=== PATIENT | female | born 1950 | race Caucasian/White ===

== ENCOUNTER 2024-08-20 03:42 | Inpatient (IN) | payer MEDICARE, OTHER ==
[~2024-08-20] VITALS: Ht 165.1 cm; Wt 81.8 kg
[2024-08-20 04:42] LABS: BASOPHILS % (AUTO) 0.3 % (0-1); EOSINOPHILS % (AUTO) 0.6 % (0-6); HEMATOCRIT 40.6 % (35.0-45.0); HEMOGLOBIN 13.6 g/dl (12.0-16.0); MEAN CORPUSCULAR HEMOGLOBIN 32.7 PG (27.0-31.0); MEAN CORPUSCULAR HGB CONC 33.5 g/dL (33.0-36.5); MEAN CORPUSCULAR VOLUME 97.7 FL (78-98); MEAN PLATELET VOLUME 7.9 FL (7.4-10.4); MONOCYTES # (AUTO) 0.6 X10'3 (0-0.9); MONOCYTES % (AUTO) 7.9 % (2-12); NEUTROPHILS # (AUTO) 6.2 X10'3 (1.8-7.7); NEUTROPHILS % (AUTO) 78.2 % (42-75); PLATELET COUNT 301 X10'3 (140-440); RED BLOOD COUNT 4.16 X10'6 (4.20-5.60); RED CELL DISTRIBUTION WIDTH 13.8 % (11.5-14.5)
[2024-08-20 04:55] LABS: ALANINE AMINOTRANSFERASE 309 U/L (12-78); ALBUMIN 3.5 G/DL (3.4-5.0); ALBUMIN/GLOBULIN RATIO 0.9 (1.1-1.5); ALKALINE PHOSPHATASE 146 IU/L (46-116); ANION GAP 7 (8-16); ASPARTATE AMINO TRANSFERASE 703 U/L (10-37); BILIRUBIN,TOTAL 1.4 MG/DL (0.1-1.0); BLOOD UREA NITROGEN 14 MG/DL (7-18); BUN/CREATININE RATIO 16.1 (10.0-20.0); CALCIUM 9.5 MG/DL (8.5-10.1); CHLORIDE 101 MMOL/L (99-107); CREATININE 0.87 MG/DL (0.40-0.90); GLUCOSE 128 MG/DL (70-104); SODIUM 139 MMOL/L (135-145); TOTAL CARBON DIOXIDE 31.1 MMOL/L (24-32); TOTAL PROTEIN 7.3 G/DL (6.4-8.2); eCRCL 51 ML/MIN; eGFR 64 ML/MIN
[2024-08-20 05:03] LABS: LIPASE 33 U/L (16-77); PRO BRAIN NATRIURETIC PEPTIDE 315 PG/ML (0-125)
[2024-08-20] MEDS ORDERED: iohexol 300mg/ml 100ml inj. ONE (05:06)
[2024-08-20] MEDS: ondansetron/PF 4mg/2ml inj IV ONE (05:22)
[2024-08-20] MEDS: morphine 4 MG/ML inj SYRINge IV ONE (05:23)
[2024-08-20] MEDS: normal saline 1000ml 1,000 ML IV ONE (05:26)
[2024-08-20] MEDS: CefTRIAXone 2gm/D5W 50ml BAG 50 ML IV SCH (08:43)
[2024-08-20 09:01] LABS: BILIRUBIN,URINE NEGATIVE (Neg); CLARITY,URINE SLIGHTLY CLOUDY (Clear); COLOR,URINE YELLOW (Yellow); GLUCOSE, URINE NEGATIVE (Neg); KETONES,URINE NEGATIVE (Neg); LEUKOCYTE ESTERASE ,URINE NEGATIVE (Neg); NITRITES, URINE POSITIVE (Neg); OCCULT BLOOD,URINE NEGATIVE (Neg); PH,URINE 7.5 (4.8-8.0); PROTEIN,URINE NEGATIVE (Neg); UROBILINOGEN,URINE >=8.0 E.U/dL (0.2-1.0)
[2024-08-20 09:02] LABS: UA COLLECTION TYPE CLN CATCH MIDSTREAM
[2024-08-20 09:07] LABS: BACTERIA,URINE 4+ /HPF (Neg); MUCUS STRANDS NONE SEEN /LPF (Neg); RBC,URINE NONE SEEN /HPF (0-2); SQUAMOUS EPITHELIAL CELL,UR FEW /LPF (FEW); WBC CLUMPS,URINE FEW /HPF (NEGATIVE); WBC,URINE 0-4 /HPF (0-4)
[2024-08-20] MEDS ORDERED: magnesium Cl slow-release 64mg tablet PO PRN (09:40)
[2024-08-20] MEDS ORDERED: acetaminophen 325mg tablet PO PRN (09:40)
[2024-08-20] MEDS ORDERED: potassium Cl 40MEQ/1/2NS 520ml 520 ML IV PRN (09:40)
[2024-08-20] MEDS ORDERED: mag hydrox/Alum hydrox/simeth 30ml oral suspension PO PRN (09:40)
[2024-08-20] MEDS: PERFLUTREN PROTEIN-A MICROSPHR (Optison) 0.22 MG/ML 3ML VIAL IV ONE (09:40)
[2024-08-20] MEDS ORDERED: potassium Cl 20 mEq SR tablet PO PRN ×2 (09:40)
[2024-08-20] MEDS ORDERED: magnesium hydroxide 30ml (MOM) UD suspension PO PRN (09:40)
[2024-08-20] MEDS ORDERED: magnesium sulf-water 4G/100mL 100 ML IV PRN (09:40)
[2024-08-20] MEDS ORDERED: magnesium sulf-water 2g/50mL 50 ML IV PRN (09:40)
[2024-08-20] MEDS: normal saline 1000ml 1,000 ML IV SCH (09:43)
[2024-08-20] MEDS: metroNIDAZOLE-Flagyl 500mg/NS 100 ML IV SCH (11:08)
[2024-08-20 11:18] LABS: MAGNESIUM 2.1 MG/DL (1.5-2.4)
[2024-08-20] MEDS ORDERED: iohexol 350MG/ML 100ml bottle IV ONE (13:18)
[2024-08-20] MEDS ORDERED: FAMO40TA58 PO (18:35)
[2024-08-20] MEDS ORDERED: LEVO75TA7 PO (18:35)
[2024-08-20] MEDS ORDERED: HYDR-3965 PO (18:35)
[2024-08-20] MEDS ORDERED: PANT40TA54 PO (18:35)
[2024-08-20] MEDS ORDERED: DULO20CA18 (18:35)
[2024-08-20 18:57] LABS: THYROID STIMULATING HORMONE 2.41 ulU/ml (0.34-4.50)
[2024-08-20 19:30] VITALS: BP 124/58; PULSE 67; RESP 18; TEMP 97.7; O2SAT 95
[2024-08-20] MEDS: K and/or MAG REPLACEMENT MC SCH (19:54)
[2024-08-20] MEDS: docusate sod 100mg capsule PO SCH (19:55)
[2024-08-20 20:00] VITALS: RESP 18; O2SAT 95
[2024-08-20 22:00] VITALS: BP 136/58; PULSE 75; RESP 14; TEMP 98.1; O2SAT 96
[2024-08-21 05:49] LABS: EOSINOPHILS # (AUTO) 0.5 X10'3 (0-0.9); EOSINOPHILS % (AUTO) 10.1 % (0-6); HEMOGLOBIN 11.9 g/dl (12.0-16.0); LYMPHOCYTES # (AUTO) 1.1 X10'3 (1.1-4.8); MEAN CORPUSCULAR HEMOGLOBIN 33.1 PG (27.0-31.0); MEAN CORPUSCULAR HGB CONC 33.1 g/dL (33.0-36.5); MEAN CORPUSCULAR VOLUME 99.9 FL (78-98); MEAN PLATELET VOLUME 7.9 FL (7.4-10.4); MONOCYTES # (AUTO) 0.6 X10'3 (0-0.9); MONOCYTES % (AUTO) 11.6 % (2-12); NEUTROPHILS # (AUTO) 2.7 X10'3 (1.8-7.7); NEUTROPHILS % (AUTO) 54.3 % (42-75); PLATELET COUNT 246 X10'3 (140-440); RED BLOOD COUNT 3.61 X10'6 (4.20-5.60)
[2024-08-21 06:00] VITALS: BP 122/53; PULSE 76; RESP 14; TEMP 97.8; O2SAT 91
[2024-08-21 06:03] LABS: ALANINE AMINOTRANSFERASE 321 U/L (12-78); ALBUMIN 2.6 G/DL (3.4-5.0); ALBUMIN/GLOBULIN RATIO 0.8 (1.1-1.5); ALKALINE PHOSPHATASE 127 IU/L (46-116); ANION GAP 5 (8-16); ASPARTATE AMINO TRANSFERASE 274 U/L (10-37); BILIRUBIN,TOTAL 0.6 MG/DL (0.1-1.0); BLOOD UREA NITROGEN 10 MG/DL (7-18); CALCIUM 8.2 MG/DL (8.5-10.1); CHLORIDE 107 MMOL/L (99-107); CHOL/HDL RATIO 2.2 (0.00-4.99); CHOLESTEROL 164 MG/DL (0-200); CREATININE 0.77 MG/DL (0.40-0.90); GLUCOSE 84 MG/DL (70-104); HDL CHOLESTEROL 74 MG/DL (35-60); MAGNESIUM 1.8 MG/DL (1.5-2.4); POTASSIUM 3.9 MMOL/L (3.5-5.1); SODIUM 140 MMOL/L (135-145); TOTAL CARBON DIOXIDE 28.5 MMOL/L (24-32); TOTAL PROTEIN 5.7 G/DL (6.4-8.2); TRIGLYCERIDES 50 MG/DL (20-135); eCRCL 58 ML/MIN; eGFR 73 ML/MIN
[2024-08-21 06:18] LABS: LDL CHOLESTEROL 77 MG/DL (50-100)
[2024-08-21] MEDS: HYDROcodone/acetaminophen 5mg/325mg tablet PO PRN (07:46)
[2024-08-21 08:00] VITALS: RESP 16; O2SAT 95
[2024-08-21 10:00] VITALS: BP 132/56; PULSE 76; RESP 16; TEMP 98.6; O2SAT 95
[2024-08-21] MEDS: morphine 2 MG/ML inj. syringe IV PRN (10:29)
[2024-08-21] MEDS: sincalide inj 1.6 MCG in normal saline 100ml IV soln 100 ML IV ONE ×2 (10:50→11:00)
[2024-08-21 13:01] VITALS: RESP 16; O2SAT 95
[2024-08-21] MEDS: azithromycin/NS 500mg/250ml 250 ML IV SCH (16:18)
[2024-08-21] MEDS: ondansetron/PF 4mg/2ml inj IV PRN (16:42)
[2024-08-21 18:30] VITALS: BP 140/55; PULSE 79; RESP 15; TEMP 99.2; O2SAT 95
[2024-08-21] MEDS: lactobacillus rhamnosus 10,000 MMU CELLS/CAPSULE PO SCH (19:54)
[2024-08-21] MEDS: methylPREDNISolone sod succ/PF 40mg inj. IV SCH (19:54)
[2024-08-21 22:00] VITALS: BP 135/55; PULSE 75; RESP 16; TEMP 98.6; O2SAT 92
[2024-08-22] VITALS (18 sets, daily range): BP systolic 135–151; BP diastolic 50–77; PULSE 62–89; RESP 12–23; TEMP 98–98.5; O2SAT 91–100
[2024-08-22 06:50] LABS: BASOPHILS % (AUTO) 0.1 % (0-1); EOSINOPHILS % (AUTO) 0 % (0-6); HEMATOCRIT 37.3 % (35.0-45.0); HEMOGLOBIN 12.3 g/dl (12.0-16.0); LYMPHOCYTES # (AUTO) 0.6 X10'3 (1.1-4.8); LYMPHOCYTES % (AUTO) 7.5 % (21-51); MEAN CORPUSCULAR HEMOGLOBIN 32.6 PG (27.0-31.0); MEAN CORPUSCULAR HGB CONC 32.9 g/dL (33.0-36.5); MEAN CORPUSCULAR VOLUME 99.1 FL (78-98); MONOCYTES # (AUTO) 0.3 X10'3 (0-0.9); MONOCYTES % (AUTO) 3.3 % (2-12); NEUTROPHILS # (AUTO) 7.4 X10'3 (1.8-7.7); NEUTROPHILS % (AUTO) 89.1 % (42-75); PLATELET COUNT 270 X10'3 (140-440); RED BLOOD COUNT 3.77 X10'6 (4.20-5.60); RED CELL DISTRIBUTION WIDTH 14.2 % (11.5-14.5); WHITE BLOOD COUNT 8.3 X10'3 (4.5-11.0)
[2024-08-22 07:02] LABS: ALANINE AMINOTRANSFERASE 216 U/L (12-78); ALBUMIN 2.8 G/DL (3.4-5.0); ALBUMIN/GLOBULIN RATIO 0.8 (1.1-1.5); ALKALINE PHOSPHATASE 121 IU/L (46-116); ANION GAP 4 (8-16); ASPARTATE AMINO TRANSFERASE 102 U/L (10-37); BILIRUBIN,TOTAL 0.3 MG/DL (0.1-1.0); BLOOD UREA NITROGEN 8 MG/DL (7-18); BUN/CREATININE RATIO 10.8 (10.0-20.0); CALCIUM 8.6 MG/DL (8.5-10.1); CHLORIDE 104 MMOL/L (99-107); CREATININE 0.74 MG/DL (0.40-0.90); GLUCOSE 130 MG/DL (70-104); MAGNESIUM 1.7 MG/DL (1.5-2.4); POTASSIUM 4.3 MMOL/L (3.5-5.1); SODIUM 138 MMOL/L (135-145); TOTAL CARBON DIOXIDE 29.7 MMOL/L (24-32); TOTAL PROTEIN 6.2 G/DL (6.4-8.2); eCRCL 60 ML/MIN; eGFR 77 ML/MIN
[2024-08-22] MEDS ORDERED: BUPIVAcaine 2.5mg/ml inj 50ml vial (contains preservative) ONE (16:16)
[2024-08-22] MEDS ORDERED: meperidine/PF 25mg/ml syringe IV PRN ×3 (16:45)
[2024-08-22] MEDS ORDERED: morphine 2 MG/ML inj. syringe IV PRN (16:45)
[2024-08-22] MEDS ORDERED: ondansetron/PF 4mg/2ml inj IV PRN (16:45)
[2024-08-22] MEDS: ringers solution, lacted 1,000 ML IV SCH (16:45)
[2024-08-22] MEDS ORDERED: proCHLORperazine 10 MG/2 ml inj IV PRN (16:45)
[2024-08-22] MEDS ORDERED: ceFAZolin 2gm in dextrose, iso 2,000 MG/50 ML BAG IV ONE (16:47)
[2024-08-22] MEDS ORDERED: fentaNYL/PF 50MCG/1 ML 2ML syringe ONE (16:52)
[2024-08-22] MEDS ORDERED: midazolam 1 mg/ML 2ml injection ONE (16:53)
[2024-08-22] MEDS ORDERED: propofol inj 20 ML IV ONE (16:54)
[2024-08-22] MEDS ORDERED: rocuronium 10mg/ml inj IV ONE (17:03)
[2024-08-22] MEDS ORDERED: glycopyrrolate 0.2mg/ml inj ONE (17:57)
[2024-08-22] MEDS ORDERED: neostigmine methylsulfate 1 MG/ML 10ml vial ONE (17:57)
[2024-08-22] MEDS ORDERED: dexamethasone sod phosphate 4mg/ml inj. ONE (17:57)
[2024-08-22] MEDS ORDERED: ondansetron/PF 4mg/2ml inj ONE (17:57)
[2024-08-22] MEDS ORDERED: naloxone 0.4 mg/ml inj IV PRN (18:15)
[2024-08-22] MEDS: morphine 4 MG/ML inj SYRINge IV PRN (18:28)
[2024-08-22] MEDS ORDERED: HYDROmorphone/PF 0.2 MG/ML SYRINGE IV PRN (18:30)
[2024-08-22] MEDS: acetaminophen 1,000mg/100ml IV 100 ML IV ONE (18:32)
[2024-08-22] MEDS: HYDROmorphone/PF 0.2 MG/ML SYRINGE IV PRN (18:34)
[2024-08-23] MEDS: ceFAZolin inj. 1,000 MG in dextrose 5%-water 50ml 50 ML IV SCH (00:22)
[2024-08-23 02:00] VITALS: BP 137/64; PULSE 80; RESP 16; TEMP 99; O2SAT 99
[2024-08-23] MEDS: HYDROcodone/acetaminophen 5mg/325mg tablet PO PRN (02:45)
[2024-08-23 05:55] LABS: BASOPHILS % (AUTO) 0.1 % (0-1); EOSINOPHILS % (AUTO) 0 % (0-6); HEMOGLOBIN 12.2 g/dl (12.0-16.0); LYMPHOCYTES # (AUTO) 0.5 X10'3 (1.1-4.8); LYMPHOCYTES % (AUTO) 4.7 % (21-51); MEAN CORPUSCULAR HEMOGLOBIN 32.6 PG (27.0-31.0); MEAN CORPUSCULAR HGB CONC 32.9 g/dL (33.0-36.5); MONOCYTES # (AUTO) 0.7 X10'3 (0-0.9); MONOCYTES % (AUTO) 6.1 % (2-12); NEUTROPHILS # (AUTO) 9.8 X10'3 (1.8-7.7); NEUTROPHILS % (AUTO) 89.1 % (42-75); PLATELET COUNT 248 X10'3 (140-440); RED BLOOD COUNT 3.73 X10'6 (4.20-5.60); RED CELL DISTRIBUTION WIDTH 14.1 % (11.5-14.5)
[2024-08-23 06:00] VITALS: BP 132/57; PULSE 80; RESP 16; TEMP 98.7; O2SAT 95
[2024-08-23 06:14] LABS: ALANINE AMINOTRANSFERASE 137 U/L (12-78); ALBUMIN 2.7 G/DL (3.4-5.0); ALBUMIN/GLOBULIN RATIO 0.8 (1.1-1.5); ALKALINE PHOSPHATASE 104 IU/L (46-116); ANION GAP 6 (8-16); ASPARTATE AMINO TRANSFERASE 52 U/L (10-37); BILIRUBIN,TOTAL 0.3 MG/DL (0.1-1.0); BLOOD UREA NITROGEN 13 MG/DL (7-18); CALCIUM 8.2 MG/DL (8.5-10.1); CHLORIDE 106 MMOL/L (99-107); CREATININE 0.81 MG/DL (0.40-0.90); GLUCOSE 136 MG/DL (70-104); MAGNESIUM 1.7 MG/DL (1.5-2.4); POTASSIUM 4.4 MMOL/L (3.5-5.1); SODIUM 142 MMOL/L (135-145); TOTAL CARBON DIOXIDE 29.6 MMOL/L (24-32); TOTAL PROTEIN 5.9 G/DL (6.4-8.2); eCRCL 55 ML/MIN; eGFR 69 ML/MIN
[2024-08-23 10:00] VITALS: BP 140/65; PULSE 82; RESP 14; TEMP 98.9; O2SAT 98
[2024-08-23] MEDS: loratadine 10mg tablet PO SCH (17:03)
[2024-08-23 18:00] VITALS: BP_SYST 146; BP_SYST 156; BP_DIAS 68; BP_DIAS 77; PULSE 68; PULSE 70; RESP 14; RESP 16; TEMP 97.9; TEMP 98.7; O2SAT 97; O2SAT 98
[2024-08-23 22:00] VITALS: BP_SYST 134; BP_SYST 167; BP_DIAS 57; BP_DIAS 76; PULSE 67; PULSE 77; RESP 15; RESP 16; TEMP 97.8; TEMP 98.9; O2SAT 93; O2SAT 97
[2024-08-24] MEDS: levoTHYROXINE 75mcg tablet PO SCH (00:27)
[2024-08-24 05:48] LABS: BASOPHILS % (AUTO) 0.3 % (0-1); EOSINOPHILS % (AUTO) 0 % (0-6); HEMOGLOBIN 11.9 g/dl (12.0-16.0); LYMPHOCYTES # (AUTO) 0.6 X10'3 (1.1-4.8); MEAN CORPUSCULAR HEMOGLOBIN 32.9 PG (27.0-31.0); MEAN CORPUSCULAR HGB CONC 33.1 g/dL (33.0-36.5); MEAN CORPUSCULAR VOLUME 99.2 FL (78-98); MEAN PLATELET VOLUME 7.8 FL (7.4-10.4); MONOCYTES # (AUTO) 0.6 X10'3 (0-0.9); MONOCYTES % (AUTO) 7.3 % (2-12); NEUTROPHILS # (AUTO) 7.4 X10'3 (1.8-7.7); NEUTROPHILS % (AUTO) 85.4 % (42-75); PLATELET COUNT 244 X10'3 (140-440); RED BLOOD COUNT 3.62 X10'6 (4.20-5.60); RED CELL DISTRIBUTION WIDTH 14.3 % (11.5-14.5); WHITE BLOOD COUNT 8.6 X10'3 (4.5-11.0)
[2024-08-24 06:00] VITALS: BP 154/69; PULSE 76; RESP 15; TEMP 99; O2SAT 95
[2024-08-24 06:19] LABS: GLUCOSE 136 MG/DL (70-104)
[2024-08-24 06:20] LABS: ALANINE AMINOTRANSFERASE 79 U/L (12-78); ALBUMIN 2.7 G/DL (3.4-5.0); ALBUMIN/GLOBULIN RATIO 0.8 (1.1-1.5); ALKALINE PHOSPHATASE 90 IU/L (46-116); ANION GAP 4 (8-16); ASPARTATE AMINO TRANSFERASE 30 U/L (10-37); BILIRUBIN,TOTAL 0.3 MG/DL (0.1-1.0); BLOOD UREA NITROGEN 11 MG/DL (7-18); BUN/CREATININE RATIO 16.4 (10.0-20.0); CALCIUM 8.2 MG/DL (8.5-10.1); CHLORIDE 106 MMOL/L (99-107); CREATININE 0.67 MG/DL (0.40-0.90); MAGNESIUM 1.9 MG/DL (1.5-2.4); POTASSIUM 4.4 MMOL/L (3.5-5.1); SODIUM 142 MMOL/L (135-145); THYROID STIMULATING HORMONE 2.83 ulU/ml (0.34-4.50); TOTAL CARBON DIOXIDE 32.4 MMOL/L (24-32); TOTAL PROTEIN 5.9 G/DL (6.4-8.2); eCRCL 66 ML/MIN; eGFR 86 ML/MIN
[2024-08-24 07:45] VITALS: RESP 15; O2SAT 95
[2024-08-24] MEDS ORDERED: CEPH-585 PO (08:28)
[2024-08-24] MEDS ORDERED: LACT1CAP26 PO (08:28)
[2024-08-24] MEDS ORDERED: PRED10TA23 PO (08:28)
[2024-08-24 10:00] VITALS: BP 154/72; PULSE 75; RESP 16; TEMP 98; O2SAT 98
== END 2024-08-24 13:30 | disposition home or self-care (01) | DRG 417 ==
LOC: ER 03:42 → ED HOLD 08:22 → UNDOADMIN 08:22 → ED HOLD 12:52 → ORTHO 4S 19:07 → ED HOLD 19:07
PROVIDERS: ADMIT Family Medicine; ATTEND Family Medicine
PROC: BW211ZZ Computerized Tomography (CT Scan) of Abdomen and Pelvis using Low Osmolar Contrast (ICD-10-PCS; 2024-08-20)
PROC: B32T1ZZ Computerized Tomography (CT Scan) of Left Pulmonary Artery using Low Osmolar Contrast (ICD-10-PCS; 2024-08-20)
PROC: B3201ZZ Computerized Tomography (CT Scan) of Thoracic Aorta using Low Osmolar Contrast (ICD-10-PCS; 2024-08-20)
PROC: B32S1ZZ Computerized Tomography (CT Scan) of Right Pulmonary Artery using Low Osmolar Contrast (ICD-10-PCS; 2024-08-20)
PROC: B4201ZZ Computerized Tomography (CT Scan) of Abdominal Aorta using Low Osmolar Contrast (ICD-10-PCS; 2024-08-20)
PROC: B4241ZZ Computerized Tomography (CT Scan) of Superior Mesenteric Artery using Low Osmolar Contrast (ICD-10-PCS; 2024-08-20)
PROC: B4281ZZ Computerized Tomography (CT Scan) of Bilateral Renal Arteries using Low Osmolar Contrast (ICD-10-PCS; 2024-08-20)
PROC: B42C1ZZ Computerized Tomography (CT Scan) of Pelvic Arteries using Low Osmolar Contrast (ICD-10-PCS; 2024-08-20)
PROC: B42H1ZZ Computerized Tomography (CT Scan) of Bilateral Lower Extremity Arteries using Low Osmolar Contrast (ICD-10-PCS; 2024-08-20)
PROC: B4211ZZ Computerized Tomography (CT Scan) of Celiac Artery using Low Osmolar Contrast (ICD-10-PCS; 2024-08-20)
PROC: 8E0W4CZ Robotic Assisted Procedure of Trunk Region, Percutaneous Endoscopic Approach (ICD-10-PCS; 2024-08-22)
PROC: CF141ZZ Planar Nuclear Medicine Imaging of Gallbladder using Technetium 99m (Tc-99m) (ICD-10-PCS; 2024-08-22)
PROC: 0FT44ZZ Resection of Gallbladder, Percutaneous Endoscopic Approach (ICD-10-PCS; principal; 2024-08-22 16:47)
DX: K80.01 Calculus of gallbladder with acute cholecystitis with obstruction (principal); J18.9 Pneumonia, unspecified organism; N39.0 Urinary tract infection, site not specified; E03.9 Hypothyroidism, unspecified; R74.01 Elevation of levels of liver transaminase levels; M79.7 Fibromyalgia; E80.6 Other disorders of bilirubin metabolism; J44.9 Chronic obstructive pulmonary disease, unspecified; Z88.5 Allergy status to narcotic agent; Z79.899 Other long term (current) drug therapy; Z87.891 Personal history of nicotine dependence; Z90.49 Acquired absence of other specified parts of digestive tract
CPT/HCPCS: 36415; 71045; 71275; 74177; 74181; 76700; 78226; 80053; 80061; 81001; 82948; 83036; 83605; 83690; 83735; 83880; 84132; 84145; 84443; 84484; 85025; 87040; 87077; 87081; 87088; 87186; 93005; 93306; 99285; A4215; A4615; A4618; A7000; A9537; G0378; J0131; J0456; J0690; J0696; J1100; J1171; J2250; J2270; J2405; J2704; J2710; J2919; J3010; J3490; J7030; J7060; J7120; Q9967